=== PATIENT | male | born 1995 | race Hispanic/Latino ===

== ENCOUNTER 2019-12-10 15:37 | Emergency (ER) | payer OTHER ==
[2019-12-10] MEDS ORDERED: LIDOCAINE 1% W/EPI 1:100,000 MDV 50 ML VIAL ONE (16:21)
[2019-12-10] MEDS ORDERED: TETANUS & DIPHTHERIA TOX,ADULT 0.5 ML VIAL ONE (16:21)
[2019-12-10 16:30] LABS: Absolute Lymphocytes (CBC) 0.8 K/uL (0.7-4.9); Basophils % 0.1 % (0-1.3); Hematocrit 41.2 % (39.6-49.0); Lymphocytes % 5.2 % (15.3-44.8); MPV 8.6 fL (7.6-11.3); RBC Red Blood Cell Count 4.67 M/uL (4.33-5.43)
[2019-12-10 16:39] LABS: Potassium 4.1 mmol/L (3.5-5.1)
--- NOTE | 2019-12-10 16:43 | RAD REPORT ---
EXAM DESCRIPTION: CT - Head C Spine Mpr Wo Con - 12/10/2019 4:21 pm CLINICAL HISTORY: Head and neck injury status post fall. Head and neck pain COMPARISON: None. TECHNIQUE: Computed axial tomography of the head and cervical spine was obtained. Sagittal and coronal reconstruction was performed. All CT scans are performed using dose optimization technique as appropriate and may include automated exposure control or mA/KV adjustment according to patient size. FINDINGS: An intracranial bleed is not seen. The ventricles are normal in caliber. An extra-axial fl uid collection is not noted.Fluid within the visualized sinuses and mastoids is not seen A cervical fracture is not visualized. No dislocation is noted. IMPRESSION: No acute intracranial abnormality is seen. A cervical fracture is not visualized. If the patient continues to have symptoms to suggest intracra nial /spinal cord pathology then MRI would be recommended
--- NOTE | 2019-12-10 16:46 | RAD REPORT ---
EXAM DESCRIPTION: CT - Facial Bones W/ Mpr - 12/10/2019 4:21 pm CLINICAL HISTORY: Facial injury status post fall COMPARISON: None TECHNIQUE: Computed axial tomography of the face was obtained. Coronal and sagittal reconstruction w as performed. All CT scans are performed using dose optimization technique as appropriate and may include automated exposure control or mA/KV adjustment according to patient size. FINDINGS: Nondisplaced nasal bone fracture. A TMJ dislocation is not noted. The globes are intact. Fluid within the sinuses is not seen. IMPRESSION: Nondisplaced nasal bone fracture
[2019-12-10] MEDS ORDERED: LIDOCAINE 1% MPF 30 ML VIAL ONE (16:48)
[2019-12-10 17:31] LABS: Blood Morphology Comment NOT SEEN (NOT SEEN); Platelet Estimate ADEQ; White Blood Cell Scan OK (OK)
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
--- NOTE | 2019-12-10 18:15 | ER ---
Nurse's Notes [facility] Name: Hiro Kaplan Age: 24 yrs Sex: Male : 1995 Arrival Date: 12/10/2019 Time: 15:38 Bed 5 Private MD: Diagnosis: Laceration without foreign body of scalp;Contusion of unspecified part of head;Fracture of nasal bones Presentation: 12/09 15:39 Chief complaint: EMS states: Pt reports he doesn't know what caused his to fall or what jl7 his head hit. Pt had syncopal episode, reports it's happened before when standing too fast, large laceration to forehead, bruising noted to right ear, bruising and swelling noted to bridge of nose. Coronavirus screen: Client denies travel out of the [place] in the last 14 days. At this time, the client does not indicate any symptoms associated with coronavirus-19. Ebola Screen: No symptoms or risks identified at this time. Initial Sepsis Screen: Does the patient meet any 2 criteria? No. Patient's initial sepsis screen is negative. Does the patient have a suspected source of infection? No. Patient's initial sepsis screen is negative. Risk Assessment: Do you want to hurt yourself or someone else? Patient reports no desire to harm self or others. Onset of symptoms was December 10, 2019. Care prior to arrival: None. Transition of care: patient was not received from another setting of care. 15:39 Method Of Arrival: Ambulatory 7 15:39 Acuity: ANTHONY 3 jl7 Triage Assessment: 15:43 General: Appears in no apparent distress. uncomfortable, Behavior is calm, cooperative, jl7 appropriate for age. Pain: Complains of pain in REYES Pain currently is 50 out of 10 on a pain scale. EENT: Ear canal clear on left ear and right ear Nares are clear. Neuro: Level of Consciousness is awake, alert, obeys commands, Oriented to person, place, time, Reports headache. Cardiovascular: Patient's skin is warm and dry. Respiratory: Airway is patent Respiratory effort is even, unlabored, Respiratory pattern is regular, symmetrical. Derm: Skin is pink, warm \T\ dry. Historical: - Allergies: 15:43 No Known Allergies; jl7 - Home Meds: 15:43 None [Active]; jl7 - PMHx: 15:43 Heart Murmur; jl7 - PSHx: 15:43 None; jl7 - Immunization history:: Adult Immunizations up to date. - Social history:: Smoking status: unknown. - Family history:: not pertinent. - Hospitalizations: : No recent hospitalization is reported. Screenin:00 Abuse screen: Denies threats or abuse. Denies injuries from another. Nutritional jl screening: No deficits noted. Tuberculosis screening: No symptoms or risk factors identified. Fall Risk IV access (20 points). Total Marsh Fall Scale indicates No Risk (0-24 pts). Assessment: 15:45 General: See triage assessment. jl7 17:00 Reassessment: Patient appears in no apparent distress at this time. No changes from [facility] previously documented assessment. Patient and/or family updated on plan of care and expected duration. Pain level reassessed. Patient is alert, oriented x 3, equal unlabored respirations, skin warm/dry/pink. Vital Signs: 15:39 BP 112 / 68; Pulse 73; Resp 15; Temp 98; Pulse Ox 99% ; Weight 68.04 kg; Height 5 ft. 8 jl7 in. (172.72 cm); Pain 10/10; 17:00 BP 113 / 64; Pulse 71; Resp 15; Pulse Ox 99% ; jl7 18:30 BP 127 / 77; Pulse 79; Resp 17; Pulse Ox 98% ; jl7 15:39 Body Mass Index 22.81 (68.04 kg, 172.72 cm) jl7 Evans Coma Score: 15:55 Eye Response: spontaneous(4). Verbal Response: oriented(5). Motor Response: obeys rn commands(6). Total: 15. 18:09 Eye Response: spontaneous(4). Verbal Response: oriented(5). Motor Response: obeys rn commands(6). Total: 15. ED Course: 15:38 Patient arrived in ED. jl7 15:39 Jevon Summers MD is Attending Physician. rn 15:42 Triage completed. jl7 16:01 Arm band placed on right wrist. jl7 16:02 Reyna Gómez, ANISA is Primary Nurse. jl7 16:05 Patient has correct armband on for positive identification. Bed in low position. Call [facility] light in reach. Side rails up X 1. Security at bedside. 16:05 Pulse ox on. NIBP on. jl7 16:19 Initial lab(s) drawn, by sc, sent to lab. Inserted saline lock: 20 gauge in right jl7 antecubital area, using aseptic technique. Blood collected. 16:21 CT Facial Bones W/O Con In Process Unspecified. EDMS 16:21 Head C Spine Mpr Wo Con In Process Unspecified. EDMS 18:00 Assist provider with laceration repair on forehead that was between 12.6 to 20 cm using jl7 Steri-strips. Set up tray. Performed by Jevon Summers MD Patient tolerated well. 18:46 IV discontinued, intact, bleeding controlled, No redness/swelling at site. Pressure jl7 dressing applied. Administered Medications: 16:15 Drug: Tetanus-Diphtheria Toxoid Adult 0.5 ml {Barrel Maker: [employer]. Exp: jl7 05/12/2022. Lot #: [id number]. } Route: IM; Site: right deltoid; 16:30 Follow up: Response: No adverse reaction jl7 17:10 Drug: Lidocaine (1 %) 1 vials Volume: 20 ml; Route: Infiltration; jl7 18:48 Follow up: Response: No adverse reaction jl7 18:25 Drug: morphine 4 mg Route: IVP; Site: right antecubital; jl7 18:45 Follow up: Response: No adverse reaction; Pain is decreased jl7 18:25 Drug: Zofran (Ondansetron) 4 mg Route: IVP; Site: right antecubital; jl7 18:46 Follow up: Response: No adverse reaction jl7 Outcome: 18:14 Discharge ordered by . rn 18:48 Discharged to Law Enforcement jl7 18:48 Condition: stable 18:48 Discharge instructions given to patient, police, Instructed on discharge instructions, follow up and referral plans. medication usage, Demonstrated understanding of instructions, follow-up care, medications, Prescriptions given X 1. 18:49 Patient left the ED. jl7 Signatures: Dispatcher [employer] Jevon Bianchi MD MD rn Leal, Jahala, RN RN jl7
[2019-12-10] MEDS ORDERED: ONDANSETRON 4 MG/2 ML VIAL ONE (18:36)
[2019-12-10] MEDS ORDERED: MORPHINE 4 MG/ML SYR ONE (18:36)
[2019-12-10 19:01] VITALS: TEMP 98
[2019-12-10 19:04] VITALS: BP 127/77; O2SAT 98
--- NOTE | 2019-12-11 08:21 | EKG ---
Test Date: 2019-12-10 Test Time: 18:37:46 Property Loss Insurance Claim Adjuster: BENITO MEASUREMENT RESULTS: Intervals: Rate: 88 TN: 134 QRSD: 80 QT: 334 QTc: 404 [place]: P: TN: 134 QRS: 108 T: 131 INTERPRETIVE STATEMENTS: Normal sinus rhythm Rightward axis Borderline ECG No previous ECG available for comparison Electronically Signed On 12-11-19 08:19:22 CDT by Ant Sellers
== END 2019-12-10 18:49 | disposition home or self-care (01) ==
LOC: ER 15:37
PROC: 0JQ10ZZ Repair Face Subcutaneous Tissue and Fascia, Open Approach (ICD-10-PCS; principal; 2019-12-10)
DX: S01.81XA Laceration without foreign body of other part of head, initial encounter (principal); S01.01XA Laceration without foreign body of scalp, initial encounter; S02.2XXA Fracture of nasal bones, initial encounter for closed fracture; W45.8XXA Other foreign body or object entering through skin, initial encounter; Y93.9 Activity, unspecified; Y92.149 Unspecified place in prison as the place of occurrence of the external cause; Z23 Encounter for immunization
CPT/HCPCS: 93005; 85025; 80048; 36415; 70450; 72125; 70486; 76377; 90471; 90714; 96375; 96374; 99285; 12013; J2405